=== PATIENT | male | born 1945 | race Caucasian/White ===

== ENCOUNTER → 2016-12-28 | Outpatient (CLI) | payer BC, OTHER ==
[~2016-12-28] MED LIST: ACET325T30 PO; ALBUAER19 INH; ALCA0.25 OPB; ALPR-385 PO; ALPR-411 PO; ALPR1TAB3 PO; ASCA500 PO; ASCO1CAP3 PO; ASPI-321 PO; ASPI-435 PO; BUME1TAB PO; BUPR-79 PO; CETI10TA73 PO; CETI10TA84 PO; CHOL400T PO; CINNOIL4 PO; CYM30 PO; DULO60CA44 PO; DXY100 PO; FLUN0.02; FLUT110A INH; FLVHFA220 INH; GUAI1TAB27 PO; LOSA1TAB PO; LOVA40TA4 PO; LRS10 PO; MEDIOIL PO; MIRA1TAB3 PO; MODA100T28 PO; MODA1TAB PO; MOML PO; MONT1TAB3 PO; MUCINEX PO; MULT-845 PO; OMEG10007 PO; OXYC-292 PO; OXYC1TAB3 PO; POLY335025 PO; POTA4.25 PO; POTATAB PO; PREG1CAP28 PO; PRLSR20 PO; PSYL48.59 PO; PSYL55.43 PO; RQP/2 PO; RQP2 PO; SILO8CAP PO; SIMV80TA2 PO; TRIA0.25 PO; VITA1TAB4 PO; VITBC PO; VNTHFA/IN INH; ZOLP10TA PO
[2016-12-28 12:43] LABS: BASO % 0.6 %; BASO ABS # 0.04 K/uL (0-0.2); COMPLETE YES; EOS % 7.4 %; HEMATOCRIT 43.7 % (42-52); IG% 0.2 %; LYMPH % 21.9 %; LYMPH ABS # 1.44 K/uL (1.2-3.4); MEAN CELL VOLUME 92.8 fL (80-100); MEAN CORPUSCULAR HEMOGLOBIN 31.4 pg (25-34); MEAN CORPUSCULAR HGB CONC 33.9 g/dl (32-36); MEAN PLATELET VOLUME 10.7 fL (7.4-10.4); MONO % 9.6 %; NEUT % 60.3 %; PLATELET COUNT 166 K/uL (130-400); RED BLOOD COUNT 4.71 M/uL (4.7-6.1); WHITE BLOOD COUNT 6.59 K/uL (4.8-10.8)
[2016-12-28 13:05] LABS: ALT/SGPT 42 U/L (12-78); AST/SGOT 32 U/L (15-37); BLOOD UREA NITROGEN 14 mg/dl (7-18); BUN/CREATININE RATIO 11.4 (10-20); CALCIUM 8.5 mg/dl (8.5-10.1); CARBON DIOXIDE 30 mmol/L (21-32); CHLORIDE 107 mmol/L (98-107); GLUCOSE 100 mg/dl (70-99); POTASSIUM 4.3 mmol/L (3.5-5.1); SODIUM 144 mmol/L (136-145); TRIGLYCERIDES 192 mg/dl (0-150); VERY LOW DENSITY LIPOPROT CALC 38 mg/dl
[2016-12-28 13:16] LABS: ALB/GLOB RATIO 1.2 (0.9-2); ALKALINE PHOSPHATASE 110 U/L (45-117); CHOLESTEROL 135 mg/dl (0-200); CHOLESTEROL/HDL RATIO 2.7; HDL CHOLESTEROL 50 mg/dl; LDL CHOLESTEROL CALCULATED 47 mg/dl
== END | disposition home or self-care (01) ==
LOC: C.LABBFT 11:02
PROVIDERS: ATTEND Psychiatry & Neurology Geriatric Psychiatry
DX: Z79.899 Other long term (current) drug therapy (principal)

== ENCOUNTER 2017-01-05 17:37 | Emergency (ER) | payer BC, OTHER ==
[~2017-01-05] VITALS: Ht 170.2 cm; Wt 93.0 kg
[~2017-01-05 17:37] MED LIST changes: -ALBUAER19 INH; -ALCA0.25 OPB; -ALPR-411 PO; -ASCA500 PO; -ASPI-435 PO; -BUME1TAB PO; -CETI10TA84 PO; -CINNOIL4 PO; -CYM30 PO; -DULO60CA44 PO; -FLUN0.02; -FLUT110A INH; -FLVHFA220 INH; -GUAI1TAB27 PO; -LRS10 PO; -MEDIOIL PO; -MIRA1TAB3 PO; -MONT1TAB3 PO; -MUCINEX PO; -MULT-845 PO; -OMEG10007 PO; -OXYC-292 PO; -OXYC1TAB3 PO; -POTA4.25 PO; -POTATAB PO; -PREG1CAP28 PO; -PSYL48.59 PO; -RQP/2 PO; -SILO8CAP PO; -SIMV80TA2 PO; -VITA1TAB4 PO; -VITBC PO; -VNTHFA/IN INH; -ZOLP10TA PO
[2017-01-05 17:46] VITALS: BP 156/98; TEMP 37; Ht 170.2 cm; Wt 93.0 kg
[2017-01-05] MEDS ORDERED: ALBUAER19 INH (17:59)
[2017-01-05] MEDS ORDERED: FLUT110A INH (17:59)
[2017-01-05] MEDS ORDERED: BUME1TAB PO (18:26)
[2017-01-05] MEDS ORDERED: PSYL48.59 PO (18:42)
[2017-01-05] MEDS ORDERED: ASPI-435 PO (18:42)
[2017-01-05] MEDS ORDERED: MIRA1TAB3 PO (18:42)
[2017-01-05] MEDS ORDERED: SIMV80TA2 PO (18:42)
[2017-01-05] MEDS ORDERED: CYM30 PO (18:42)
--- NOTE | 2017-01-05 18:48 | DIAGNOSTIC IMAGING REPORT ---
LEFT KNEE 3 VIEWS CLINICAL HISTORY: fall, left knee pain trauma. Pain. COMPARISON: None. DISCUSSION: Evidence for a total knee revision. Good contact between prosthetic and underlying bone. No evidence for fracture. There is no evidence for soft tissue swelling. IMPRESSION: No acute process status post total left knee revision Electronically signed by: Jonas Ahuja M.D. 01/05/2017 6:46 PM Dictated Date/Time: 01/05/2017 6:46 PM
--- NOTE | 2017-01-05 18:49 | DIAGNOSTIC IMAGING REPORT ---
LEFT SHOULDER MIN 2 VIEWS ROUTINE CLINICAL HISTORY: fall, left shoulder pain pain. Trauma. COMPARISON: None. DISCUSSION: Grade 2 separation left acromioclavicular joint. Age is uncertain. Narrowing of the acromiohumeral space presumably secondary to deterioration of the rotator cuff. No well-defined focus of fracture. There is no evidence for soft tissue swelling. IMPRESSION: Degenerative change. Grade 2 separation left acromioclavicular joint of uncertain age. Moderate secondary evidence for degenerative thinning of the rotator cuff. Electronically signed by: Jonas Ahuja M.D. 01/05/2017 6:47 PM Dictated Date/Time: 01/05/2017 6:47 PM
--- NOTE | 2017-01-05 18:56 | EMERGENCY ROOM VISIT NOTE ---
History First contact with patient: 17:52 Chief Complaint: SHOULDER PAIN Stated Complaint: SHOULDER PAIN FROM FALL, NEEDS XRAY History of Present Illness The patient is a 71 year old male who presents to the Emergency Room with complaints of fall. The patient states he was walking out of the store and looking at his receipt and tripped and fell down a step. The patient fell onto his left shoulder. He states he also sustained an abrasion to the left knee. He went to urgent care and was given a prescription for oxycodone. He states they also cleaned and dressed the abrasion to his knee. He states he was told it did not need any stitches and was an abrasion. The patient was sent to the emergency department for x-rays as they did not have x-ray capabilities today. The patient did not strike his head or have loss of consciousness. He has been able to ambulate without difficulty. He reports pain in his left shoulder which she rates a 7/10. He denies any numbness, tingling or weakness. He denies any nausea or vomiting. He denies abdominal pain. He denies any hip pain. Review of Systems A 10 system review of systems was completed with positives and pertinent negatives listed in the HPI. Past Medical/Surgical History Medical Problems: (1) GERD (gastroesophageal reflux disease) (2) Hyperlipidemia Social History Smoking Status: Never Smoker Drug Use: none Marital Status: Housing Status: lives with family Current/Historical Medications Scheduled Alcaftadine (Lastacaft), 1 DROP OPB QAM Alprazolam (Xanax), 1 MG PO AMPM Alprazolam (Xanax), 2 MG PO HS Aspirin (Aspirin 81), 81 MG PO DAILY Baclofen (Baclofen), 10 MG PO TID Bumetanide (Bumex), 1 MG PO QAM Bupropion (Wellbutrin Sr), 150 MG PO TID Cholecalciferol (Vitamin D), 800 UNIT PO HS Cinnamon Oil (Cinnamon Oil), 1 TBS PO QAM Duloxetine HCl (Duloxetine HCl), 30 MG PO QAM Duloxetine Hcl (Cymbalta), 60 MG PO QAM Fish Oil ([place]-3), 1 CAP PO BID Flunisolide (Nasal) (Flunisolide), 1 SPRAY NA AMHS Fluticasone Propionate Hfa (Flovent Hfa 110MCG Inhaler), 1 PUFF INH AMPM Losartan Potassium (Cozaar), 25 MG PO HS Magnesium Hydroxide (Milk Of Magnesia), 15 ML PO HS Mirabegron (Myrbetriq Er), 50 MG PO QAM Modafinil (Provigil), 200 MG PO QAM Modafinil (Provigil), 100 MG PO QPM Montelukast Sodium (Singulair), 10 MG PO QAM Multiple Vitamins W/ Minerals (Centrum Silver Adult 50+), 1 TAB PO QAM Omeprazole (Prilosec), 20 MG PO AMPM Polyethylene Glycol 3350 (Miralax), 17 GM PO BID Potassium Citrate (Alkalinizer (Potassium Citrate ER), 1,620 MG PO AMHS Pregabalin (Lyrica), 75 MG PO BID Psyllium (Metamucil), 1 TBS PO QAM Ropinirole Hydrochloride (Requip), 2 MG PO AMPM Ropinirole Hydrochloride (Requip), 4 MG PO HS Silodosin (Rapaflo), 8 MG PO DAILY Simvastatin (Zocor), 80 MG PO QPM Triazolam (Halcion), 0.25 MG PO HS Zolpidem Tartrate (Ambien), 10 MG PO HS [Mucinex], 400 MG PO AMPM Scheduled PRN Acetaminophen (Acetaminophen), 650 MG PO Q6 PRN for Pain or Fever Albuterol Inhaler (Ventolin Inhaler), 2 PUFFS INH Q4 PRN for SOB/Wheezing Alprazolam (Xanax), 1 MG PO DAILY PRN for Anxiety Allergies Coded Allergies: Morphine (Verified Adverse Reaction, Unknown, 05/08/15) Physical Exam Vital Signs Date Time Temp Pulse Resp B/P Pulse Ox O2 Delivery O2 Flow Rate FiO2 01/05/17 19:46 67 18 98 2 17:46 37.0 69 20 156/98 96 Room Air Physical Exam VITALS: Vitals are noted on the nurse's note and reviewed by myself. Vital signs stable. GENERAL: This is a 71-year-old male, in no acute distress, nondiaphoretic, well- developed well-nourished. SKIN: The skin was without rashes, erythema, edema, or bruising. There is a dressed wound to the left knee. The patient states he was told he did not need stitches and it was already clean and dressed and therefore he left the dressing in place. There is no tenting of the skin. Capillary reflex less than 2 seconds. HEAD: Normocephalic atraumatic. EARS: External auditory canals clear, tympanic membranes pearly browning without erythema or effusion bilaterally. EYES: Pupils equal round and reactive to light and accommodation. Conjunctivae without injection, sclerae without icterus. Extraocular movements intact. NOSE: Patent, turbinates without inflammation or discharge. MOUTH: Mucous membranes moist. Tonsils are not enlarged. Pharynx without erythema or exudate. Uvula midline. Airway patent. Tongue does not deviate. NECK: Supple without nuchal rigidity. No lymphadenopathy. No thyromegaly. Cervical spine is nontender. No JVD. HEART: Regular rate and rhythm without murmurs gallops or rubs. LUNGS: Clear to auscultation bilaterally without wheezes, rales or rhonchi. No retractions or accessory muscle use. MUSCULOSKELETAL: No muscle atrophy, erythema, or edema noted. Decreased range of motion in the left shoulder secondary to pain. There is tenderness to palpation over the proximal humerus. There is no abrasion to the left knee. There is no significant tenderness to the knee. The patient has had arthroplasty to the left knee. Normal gait. Strength 5/5 throughout. NEURO: Patient was alert and oriented to person place and time. Normal sensation to light and sharp touch. Deep tendon reflexes 2+ throughout. No focal neurological deficits. Medical Decision & Procedures ER Provider Diagnostic Interpretation: LEFT KNEE 3 VIEWS CLINICAL HISTORY: fall, left knee pain trauma. Pain. COMPARISON: None. DISCUSSION: Evidence for a total knee revision. Good contact between prosthetic and underlying bone. No evidence for fracture. There is no evidence for soft tissue swelling. IMPRESSION: No acute process status post total left knee revision LEFT SHOULDER MIN 2 VIEWS ROUTINE CLINICAL HISTORY: fall, left shoulder pain pain. Trauma. COMPARISON: None. DISCUSSION: Grade 2 separation left acromioclavicular joint. Age is uncertain. Narrowing of the acromiohumeral space presumably secondary to deterioration of the rotator cuff. No well-defined focus of fracture. There is no evidence for soft tissue swelling. IMPRESSION: Degenerative change. Grade 2 separation left acromioclavicular joint of uncertain age. Moderate secondary evidence for degenerative thinning of the rotator cuff. Medications Administered Medications (Trade) Dose Ordered Sig/Yael Route Start Time Stop Time Status Last Admin Dose Admin Oxycodone HCl (Roxicodone Immediate Rel Tab) 5 mg NOW STAT PO 01/05/17 19:08 01/05/17 19:10 DC 01/05/17 19:43 5 MG Oxycodone HCl (Roxicodone Immediate Rel 5MG Home Pack) 1 homepack UD ONCE PO 01/05/17 19:15 01/05/17 19:16 DC 01/05/17 19:43 1 HOMEPACK ED Course The patient was seen and examined. Previous visits were reviewed. The patient sustained a mechanical fall. He was already seen at urgent care and referred to the emergency department solely for x-ray. The patient appears to have an acromioclavicular separation to the left shoulder. He has had repair of the rotator cuff in the past. He does not recall having an acromioclavicular separation in the past. The patient is neurovascularly intact. He already had a sling from urgent care. He already had a prescription for oxycodone from urgent care. There is no significant tenderness to palpation of the left knee. The patient reports an abrasion was already cleaned and dressed. He states that he was told it did not need sutures. He did seem to prefer to leave the dressing in place. X-ray of the left knee does not reveal any obvious abnormality and the prosthesis is intact. He was given 1 oxycodone in the emergency department as well as a take-home pack. He should contact orthopedics, he sees [facility], tomorrow to schedule a follow-up appointment for further evaluation and management. He should return to the ER with worsening symptoms. The patient was also seen and examined by who agrees with the assessment and treatment plan. Medical Decision The differential diagnosis includes extremity fracture, contusion, shoulder dislocation, among others Impression Primary Impression: AC separation, type 2 Additional Impressions: Knee contusion Fall Departure Information Dispostion Home / Self-Care Condition GOOD Referrals Augusto Valdez M.D. (PCP) Alvin Greenberg M.D. Patient Instructions Arthritis Acromioclavicular, [facility] Additional Instructions Take the pain medication as prescribed by urgent care. Wear the sling until seen by orthopedics Contact orthopedics in the morning to schedule a follow-up appointment Return with worsening symptoms Problem Qualifiers Primary Impression: AC separation, type 2 Encounter type: initial encounter Laterality: left Qualified Codes: S43.102A - Unspecified dislocation of left acromioclavicular joint, initial encounter Additional Impressions: Knee contusion Encounter type: initial encounter Laterality: left Qualified Codes: S80.02XA - Contusion of left knee, initial encounter Fall Encounter type: initial encounter Qualified Codes: W19.XXXA - Unspecified fall, initial encounter
[2017-01-05] MEDS ORDERED: OXYCODONE HCL IR 5 MG TAB (IMMEDIATE RELEASE) PO STA (19:08)
[2017-01-05] MEDS ORDERED: TRIA0.25 PO (19:15)
[2017-01-05] MEDS ORDERED: OXYCODONE IR HOME PACK PO ONE (19:15)
[2017-01-05] MEDS ORDERED: MUCINEX PO (19:15)
[2017-01-05] MEDS ORDERED: ALCA0.25 OPB (19:15)
[2017-01-05] MEDS ORDERED: OMEG10007 PO (19:19)
[2017-01-05] MEDS ORDERED: CINNOIL4 PO (19:19)
--- NOTE | 2017-01-05 19:43 | EMERGENCY ROOM VISIT NOTE ---
ED Visit Note First contact with patient: 19:26 71-year-old male with left shoulder pain was fully evaluated by Paula Self. Please see her note. I also independently evaluated the patient. The patient appears to have a left before meals separation. The patient will follow -up with orthopedics. He was placed in a sling. IMPRESSION: Left AC Separation
[2017-01-05 19:46] VITALS: PULSE 67; O2SAT 98
[2017-01-05] MEDS ORDERED: DULO60CA44 PO (23:26)
[2017-01-05] MEDS ORDERED: ALPR-411 PO (23:29)
[2017-01-05] MEDS ORDERED: PREG1CAP28 PO (23:30)
[2017-01-05] MEDS ORDERED: MULT-845 PO (23:35)
[2017-01-05] MEDS ORDERED: SILO8CAP PO (23:43)
[2017-01-05] MEDS ORDERED: RQP/2 PO ×2 (23:44)
[2017-01-05] MEDS ORDERED: LRS10 PO (23:50)
[2017-01-05] MEDS ORDERED: POTA4.25 PO (23:50)
[2017-01-05] MEDS ORDERED: ZOLP10TA PO (23:50)
[2017-01-05] MEDS ORDERED: MONT1TAB3 PO (23:53)
[2017-01-05] MEDS ORDERED: FLUN0.02 (23:56)
[2017-03-22] MEDS ORDERED: VNTHFA/IN INH (20:33)
[2017-03-22] MEDS ORDERED: VITBC PO (20:33)
[2017-03-22] MEDS ORDERED: MEDIOIL PO (20:33)
[2017-03-22] MEDS ORDERED: CETI10TA84 PO (20:33)
[2017-03-22] MEDS ORDERED: POTATAB PO (20:33)
[2017-03-22] MEDS ORDERED: ASCA500 PO (20:33)
[2017-03-22] MEDS ORDERED: FLVHFA220 INH (20:33)
[2017-03-22] MEDS ORDERED: GUAI1TAB27 PO (20:33)
[2017-03-22] MEDS ORDERED: VITA1TAB4 PO (20:33)
[2017-03-22] MEDS ORDERED: OXYC-292 PO (20:34)
[2017-03-22] MEDS ORDERED: OXYC1TAB3 PO (20:49)
== END 2017-01-05 20:00 | disposition home or self-care (01) ==
LOC: C.EDB 17:38 → C.EDD 20:00
DX: S43.102A Unspecified dislocation of left acromioclavicular joint, initial encounter (principal); S80.02XA Contusion of left knee, initial encounter; W19.XXXA Unspecified fall, initial encounter; Z79.82 Long term (current) use of aspirin; K21.9 Gastro-esophageal reflux disease without esophagitis

== ENCOUNTER → 2017-02-06 | Outpatient (CLI) | payer BC, OTHER ==
[~2017-02-06] MED LIST changes: +ALBUAER19 INH; +ALCA0.25 OPB; +ALPR-411 PO; +ASCA500 PO; -ASCO1CAP3 PO; -ASPI-321 PO; +ASPI-435 PO; +BUME1TAB PO; -CETI10TA73 PO; +CETI10TA84 PO; +CINNOIL4 PO; +CYM30 PO; +DULO60CA44 PO; -DXY100 PO; +FLUN0.02; +FLUT110A INH; +FLVHFA220 INH; +GUAI1TAB27 PO; -LOVA40TA4 PO; +LRS10 PO; +MEDIOIL PO; +MIRA1TAB3 PO; +MONT1TAB3 PO; +MUCINEX PO; +MULT-845 PO; +OMEG10007 PO; +OXYC-292 PO; +OXYC1TAB3 PO; +POTA4.25 PO; +POTATAB PO; +PREG1CAP28 PO; +PSYL48.59 PO; -PSYL55.43 PO; +RQP/2 PO; -RQP2 PO; +SILO8CAP PO; +SIMV80TA2 PO; +VITA1TAB4 PO; +VITBC PO; +VNTHFA/IN INH; +ZOLP10TA PO
== END | disposition home or self-care (01) ==
LOC: C.CPL 15:55
PROVIDERS: ATTEND Orthopaedic Surgery
DX: Z01.810 Encounter for preprocedural cardiovascular examination (principal)

== ENCOUNTER → 2017-03-06 | Outpatient (CLI) | payer BC, OTHER ==
[~2017-03-06] MED LIST changes: -GUAI1TAB27 PO; +GUAI400T44 PO
[2017-03-06 19:23] LABS: BLOOD UREA NITROGEN 16 mg/dl (7-18)
== END | disposition home or self-care (01) ==
LOC: C.LAB 17:54
PROVIDERS: ATTEND Psychiatry & Neurology Neurology
DX: R35.0 Frequency of micturition (principal); R48.2 Apraxia

== ENCOUNTER → 2017-03-10 | Outpatient (CLI) | payer BC, OTHER ==
[~2017-03-10] MED LIST changes: +GADAVIST IV PRN
--- NOTE | 2017-03-10 20:01 | DIAGNOSTIC IMAGING REPORT ---
MRI OF THE BRAIN WITHOUT AND WITH IV CONTRAST CLINICAL HISTORY: R35.0 Urinary [id number] Gait apraxia evaluate for [id number] mental status change COMPARISON STUDY: 09/01/2006 TECHNIQUE: Utilizing a 1.5 Tessy magnet and dedicated coil, multiplanar, multiecho imaging of the brain was performed pre and postcontrast administration. IV administration of 8 mL of Gadavist contrast was uneventful. FINDINGS: Diffusion-weighted images show no evidence for an acute ischemic event. Moderate chronic small vessel change of the periventricular deep white matter regions. Ventricular system is midline. Postcontrast images are considered negative for an enhancing lesion. IMPRESSION: 1. No evidence for an acute ischemic event. 2. Moderate chronic small vessel change with findings of mild atrophy of aging. 3. No acute process. No major change from the prior exam. Electronically signed by: Jonas Ahjua M.D. 03/10/2017 7:59 PM Dictated Date/Time: 03/10/2017 7:56 PM
--- NOTE | 2017-03-10 20:16 | DIAGNOSTIC IMAGING REPORT ---
CERVICAL SPINE MRI WITH AND WITHOUT CONTRAST HISTORY: Neuropathy G37.3 Transverse [id number] TECHNIQUE: Multiplanar multisequence MRI of the cervical spine was performed both before and after the use of intravenous contrast. COMPARISON STUDY: 09/19/2006 FINDINGS: Moderate degenerative intervertebral this change from C5 through C7 similar compared to the prior study. Sagittal images show improved signal character of the cord. The increased signal present described is no longer present. C2-C3: No significant central canal or neural foraminal narrowing. C3-C4: Broad-based bulging disc. No significant contact with the cervical cord or neural foramina. C4-C5: Moderate osteophytic narrowing right and to lesser extent left neural foramina. This is unchanged in the prior study. No significant impact upon the cervical cord C5-C6: Mild broad-based disc herniation. Minimal impact of the anterior cervical cord. Mild narrowing of the neuroforamina bilaterally. Findings a slightly improved from the prior study. C6-C7: Mild broad-based disc herniation showing minimal contact with the anterior cervical cord. Moderate narrowing of the neuroforamina bilaterally. This is also similar compared to the prior study C7-T1: Moderate osteophytic narrowing right neural foramina minimally increased in the prior study. IMPRESSION: 1. Moderate osteophytic narrowing right neural foramina C7-T1 minimally increased in the prior exam. 2. Broad-based bulging disc versus mild disc herniations from C4 through C6 is stable to perhaps slightly diminished in the prior exam. 3. Signal characteristics of the cervical cord currently are unremarkable. 4. No evidence for abnormal postcontrast enhancement Electronically signed by: Jonas Ahuja M.D. 03/10/2017 8:14 PM Dictated Date/Time: 03/10/2017 8:11 PM
== END | disposition home or self-care (01) ==
LOC: C.MRI 17:31
PROVIDERS: ATTEND Psychiatry & Neurology Neurology
DX: R35.0 Frequency of micturition (principal); G37.3 Acute transverse myelitis in demyelinating disease of central nervous system

== ENCOUNTER → 2017-03-21 | Outpatient (CLI) | payer BC, OTHER ==
[~2017-03-21] MED LIST changes: -GADAVIST IV PRN
--- NOTE | 2017-03-21 14:10 | DIAGNOSTIC IMAGING REPORT ---
CHEST 2 VIEWS ROUTINE CLINICAL HISTORY[id number] COMPARISON STUDY: 05/08/2015 FINDINGS: The cardiac and mediastinal contours are normal. There is no evidence of focal pulmonary consolidation. There is no evidence of failure. No pleural effusions are visualized.[ There is minor chronic interstitial thickening similar to the preceding study. Degenerative changes are present within the dorsal spine. IMPRESSION: No active disease in the chest. Electronically signed by: Vlad Booth M.D. 03/21/2017 2:08 PM Dictated Date/Time: 03/21/2017 2:08 PM
== END | disposition home or self-care (01) ==
LOC: C.RAD 13:37
PROVIDERS: ATTEND Internal Medicine Pulmonary Disease
DX: Z00.00 Encounter for general adult medical examination without abnormal findings (principal)

== ENCOUNTER → 2017-12-28 | Outpatient (CLI) | payer BC, OTHER ==
[~2017-12-28] MED LIST changes: +ACET-1346 PO; -ACET325T30 PO; -ALBUAER19 INH; -FLUT110A INH; -MONT1TAB3 PO; -MUCINEX PO; -OXYC1TAB3 PO; -POTA4.25 PO
[2017-12-28 15:34] LABS: BASO % 0.3 %; BASO ABS # 0.02 K/uL (0-0.2); EOS % 4.2 %; EOS ABS # 0.28 K/uL (0-0.5); HEMATOCRIT 43.1 % (42-52); HEMOGLOBIN 14.5 g/dL (14.0-18.0); IG# 0.02 K/uL (0.00-0.02); LYMPH % 25.4 %; LYMPH ABS # 1.69 K/uL (1.2-3.4); MEAN CELL VOLUME 94.1 fL (80-100); MEAN CORPUSCULAR HEMOGLOBIN 31.7 pg (25-34); MEAN CORPUSCULAR HGB CONC 33.6 g/dl (32-36); MEAN PLATELET VOLUME 10.6 fL (7.4-10.4); MONO % 7.7 %; MONO ABS # 0.51 K/uL (0.11-0.59); NEUT % 62.1 %; NEUT ABS # 4.13 K/uL (1.4-6.5); PLATELET COUNT 179 K/uL (130-400); RED CELL DISTRIBUTION WIDTH CV 14.4 % (11.5-14.5); RED CELL DISTRIBUTION WIDTH SD 49.2 fL (36.4-46.3); WHITE BLOOD COUNT 6.65 K/uL (4.8-10.8)
[2017-12-28 15:52] LABS: BLOOD UREA NITROGEN 14 mg/dl (7-18); CARBON DIOXIDE 28 mmol/L (21-32); CREATININE 1.14 mg/dl (0.60-1.40); GLUCOSE 111 mg/dl (70-99); POTASSIUM 3.7 mmol/L (3.5-5.1); SODIUM 141 mmol/L (136-145)
== END | disposition home or self-care (01) ==
LOC: C.LAB1850 13:36
PROVIDERS: ATTEND Physician Assistant Medical
DX: R21 Rash and other nonspecific skin eruption (principal)

== ENCOUNTER → 2018-03-01 | Day surgery (SDC) | payer BC, OTHER ==
[2018-02-21 11:34] VITALS: Ht 170.2 cm; Wt 90.9 kg
[~2018-03-01] VITALS: Ht 170.2 cm; Wt 90.9 kg
[~2018-03-01] MED LIST changes: +ALCA0.25 OP; -ALPR-411 PO; -ALPR1TAB3 PO; -ASCA500 PO; +FESO4TAB PO; +LIDOCAINE HCL 2% 2 ML VIAL (20MG/ML) ONE; -MIRA1TAB3 PO; -MOML PO; +PREG100C PO; -PREG1CAP28 PO; +PROPOFOL IV EMULSION 10 MG/ML 20 ML VIAL IV ONE; -PSYL48.59 PO
--- NOTE | 2018-03-01 12:19 | Endo History and Physical ---
History & Physical Date of Service: Mar 01, 2018. Chief Complaint: Screening Referring Physician: José Miguel History of Present Illness 72 yo CM who presents for screening colonoscopy. Past Medical History Neurological Disorder, Arthritis, Fractures, Asthma, Male Genitourinary Prob., Gastrointestinal Disorder, Anxiety, Reflux, High Cholesterol, Sleep Apnea, Hypertension, Kidney Disease, Depression Past Surgical History Hx Cardiac Surgery: No Hx Internal Defibrillator: No Hx Pacemaker: No Hx Abdominal Surgery: Yes (APPENDECTOMY) Hx of Implantable Prosthesis: No Hx Post-Op Nausea and Vomiting: No Hx Cancer Surgery: No Hx Thoracic Surgery: No Hx Orthopedic: Yes (LEFT KNEE ARTHROSCOPY;LT KNEE RELACEMENTX2; TIMOTEO SHOULDER ARTHROSCOPY; ) Hx Urinary Tract Surgery: Yes (PROSTATE TUNA; CYSTO/STONE BASKETING; MNPG) Family History None Social History Smoking Status: Never Smoker Hx Substance Use: No Hx Alcohol Use: Yes (OCCASSIONAL) Allergies Coded Allergies: Morphine (Verified Adverse Reaction, Unknown, UNABLE TO VOID; CONSTIPATION , 02/21/18) Current Medications Reported Home Medications Medications Dose Route/Sig Max Daily Dose Days Date Category Dose Instructions Lastacaft (Alcaftadine) 0.25 % Ida 1 Drops OP UD 02/21/18 Reported Toviaz (Fesoterodine Fumarate) 4 Mg Tab 4 Mg PO QAM 02/21/18 Reported Lyrica (Pregabalin) 100 Mg Cap 100 Mg PO BID 02/21/18 Reported Oxycodone Hcl Er (Oxycodone Hcl) 10 Mg Tab 10 Mg PO Q12 PRN 03/22/17 Reported Mct Oil (Medium Chain Triglycerides) 1 Oil Oil 1 Tbs PO QAM 03/22/17 Reported Vitamin B Complex 1 Tab Tab 1 Tab PO QPM 03/22/17 Reported Vitamin E 400 Unit Tab 400 Unit PO QPM 03/22/17 Reported Guaifenesin 400 Mg Tab 400 Mg PO BID 03/22/17 Reported Zyrtec (Cetirizine HCl) 10 Mg Tab 10 Mg PO DAILY 03/22/17 Reported Urocit-K 5 (Potassium Citrate (Alkalinizer) 540 Mg Tab 1,620 Mg PO AMHS 03/22/17 Reported Ventolin Hfa (Albuterol) 200 Puffs/30703 Mcg Aers 2 Puffs INH Q4 PRN 03/22/17 Reported Cinnamon Oil 1 Oil Oil 1 Tbs PO QAM 01/05/17 Reported [place]-3 (Fish Oil) 1 Ea Cap 1 Cap PO BID 01/05/17 Reported Lastacaft (Alcaftadine) 0.25 % Ida 1 Drop OPB QAM 01/05/17 Reported Halcion (Triazolam) 0.25 Mg Tab 0.125 Mg PO HS 01/05/17 Reported Duloxetine HCl 30 Mg Cap 30 Mg PO QAM 01/05/17 Reported Zocor (Simvastatin) 80 Mg Tab 80 Mg PO QPM 01/05/17 Reported Aspirin 81 (Aspirin) 81 Mg Tab 81 Mg PO QAM 01/05/17 Reported Flunisolide (Flunisolide (Nasal)) 0.025 % Spr 1 [place] NA AMHS 05/08/15 Reported Baclofen 10 Mg Tab 10 Mg PO TID 05/08/15 Reported AM, PM, HS Ambien (Zolpidem Tartrate) 10 Mg Tab 10 Mg PO HS 05/08/15 Reported Requip (Ropinirole Hydrochloride) 2 Mg Tab 4 Mg PO HS 05/08/15 Reported Requip (Ropinirole Hydrochloride) 2 Mg Tab 2 Mg PO AMPM 05/08/15 Reported Rapaflo (Silodosin) 8 Mg Cap 8 Mg PO HS 05/08/15 Reported Centrum Silver Adult 50+ (Multiple Vitamins W/ Minerals) 1 Tab Tab 1 Tab PO QAM 05/08/15 Reported Cymbalta (Duloxetine Hcl) 60 Mg Cap 60 Mg PO QAM 05/08/15 Reported Miralax (Polyethylene Glycol 3350) 1 Pow Pow 17 Gm PO BID 08/09/14 Reported Vitamin D (Cholecalciferol) 400 Unit Tab 800 Unit PO HS 05/27/14 Reported Xanax (Alprazolam) 1 Mg Tab 0.5 Mg PO TID 05/27/14 Reported Cozaar (Losartan Potassium) 25 Mg Tab 25 Mg PO HS 05/27/14 Reported Prilosec (Omeprazole) 20 Mg Capcr 20 Mg PO AMPM 05/27/14 Reported Bumex (Bumetanide) 1 Mg Tab 1 Mg PO QAM 10/28/13 Reported Acetaminophen 325 Mg Tab 650 Mg PO Q6 PRN 07/11/13 Reported Provigil (Modafinil) 100 Mg Tab 100 Mg PO QPM 07/11/13 Reported Wellbutrin Sr (Bupropion HCl) 150 Mg Ertab 150 Mg PO TID 07/11/13 Reported Provigil (Modafinil) 200 Mg Tab 200 Mg PO QAM 12/29/09 Reported Vital Signs Weight (Kilograms): 90.91 Height (Feet): 5 Height (Inches): 7 Date Time Temp Pulse Resp B/P (MAP) Pulse Ox O2 Delivery O2 Flow Rate FiO2 03/01/18 12:06 36.6 68 18 148/97 (114) 96 Room Air Physical Exam General Appearance: WD/WN, no apparent distress Respiratory/Chest: Auscultation: breath sounds normal Cardiovascular: Heart Auscultation: RRR Abdomen: Bowel Sounds: normal Inspection & Palpation: soft, non-distended, no tenderness, guarding & rebound Assessment and Plan Assessment: 72 yo CM who presents for screening colonoscopy. Plan: Proceed with colonoscopy.
--- NOTE | 2018-03-01 13:37 | Discharge Instructions ---
Endoscopy Patient Instructions Date / Procedure(s) Performed Mar 01, 2018. Colonoscopy Allergy Information Coded Allergies: Morphine (Verified Adverse Reaction, Unknown, UNABLE TO VOID; CONSTIPATION , 02/21/18) Discharge Date / Findings Mar 01, 2018. Diverticulosis Internal hemorrhoids Medication Instructions OK to resume all medications today as prescribed Reported Home Medications Medications Dose Route/Sig Max Daily Dose Days Date Category Dose Instructions Lastacaft (Alcaftadine) 0.25 % Ida 1 Drops OP UD 02/21/18 Reported Toviaz (Fesoterodine Fumarate) 4 Mg Tab 4 Mg PO QAM 02/21/18 Reported Lyrica (Pregabalin) 100 Mg Cap 100 Mg PO BID 02/21/18 Reported Oxycodone Hcl Er (Oxycodone Hcl) 10 Mg Tab 10 Mg PO Q12 PRN 03/22/17 Reported Mct Oil (Medium Chain Triglycerides) 1 Oil Oil 1 Tbs PO QAM 03/22/17 Reported Vitamin B Complex 1 Tab Tab 1 Tab PO QPM 03/22/17 Reported Vitamin E 400 Unit Tab 400 Unit PO QPM 03/22/17 Reported Guaifenesin 400 Mg Tab 400 Mg PO BID 03/22/17 Reported Zyrtec (Cetirizine HCl) 10 Mg Tab 10 Mg PO DAILY 03/22/17 Reported Urocit-K 5 (Potassium Citrate (Alkalinizer) 540 Mg Tab 1,620 Mg PO AMHS 03/22/17 Reported Ventolin Hfa (Albuterol) 200 Puffs/80112 Mcg Aers 2 Puffs INH Q4 PRN 03/22/17 Reported Cinnamon Oil 1 Oil Oil 1 Tbs PO QAM 01/05/17 Reported [place]-3 (Fish Oil) 1 Ea Cap 1 Cap PO BID 01/05/17 Reported Lastacaft (Alcaftadine) 0.25 % Ida 1 Drop OPB QAM 01/05/17 Reported Halcion (Triazolam) 0.25 Mg Tab 0.125 Mg PO HS 01/05/17 Reported Duloxetine HCl 30 Mg Cap 30 Mg PO QAM 01/05/17 Reported Zocor (Simvastatin) 80 Mg Tab 80 Mg PO QPM 01/05/17 Reported Aspirin 81 (Aspirin) 81 Mg Tab 81 Mg PO QAM 01/05/17 Reported Flunisolide (Flunisolide (Nasal)) 0.025 % Spr 1 [place] NA AMHS 05/08/15 Reported Baclofen 10 Mg Tab 10 Mg PO TID 05/08/15 Reported AM, PM, HS Ambien (Zolpidem Tartrate) 10 Mg Tab 10 Mg PO HS 05/08/15 Reported Requip (Ropinirole Hydrochloride) 2 Mg Tab 4 Mg PO HS 05/08/15 Reported Requip (Ropinirole Hydrochloride) 2 Mg Tab 2 Mg PO AMPM 05/08/15 Reported Rapaflo (Silodosin) 8 Mg Cap 8 Mg PO HS 05/08/15 Reported Centrum Silver Adult 50+ (Multiple Vitamins W/ Minerals) 1 Tab Tab 1 Tab PO QAM 05/08/15 Reported Cymbalta (Duloxetine Hcl) 60 Mg Cap 60 Mg PO QAM 05/08/15 Reported Miralax (Polyethylene Glycol 3350) 1 Pow 17 Gm PO BID 08/09/14 Reported Vitamin D (Cholecalciferol) 400 Unit Tab 800 Unit PO HS 05/27/14 Reported Xanax (Alprazolam) 1 Mg Tab 0.5 Mg PO TID 05/27/14 Reported Cozaar (Losartan Potassium) 25 Mg Tab 25 Mg PO HS 05/27/14 Reported Prilosec (Omeprazole) 20 Mg Capcr 20 Mg PO AMPM 05/27/14 Reported Bumex (Bumetanide) 1 Mg Tab 1 Mg PO QAM 10/28/13 Reported Acetaminophen 325 Mg Tab 650 Mg PO Q6 PRN 07/11/13 Reported Provigil (Modafinil) 100 Mg Tab 100 Mg PO QPM 07/11/13 Reported Wellbutrin Sr (Bupropion HCl) 150 Mg Ertab 150 Mg PO TID 07/11/13 Reported Provigil (Modafinil) 200 Mg Tab 200 Mg PO QAM 12/29/09 Reported Provider Instructions Activity Restrictions - No exercising or heavy lifting for 24 hours. - Do not drink alcohol the day of the procedure. - Do not drive a car or operate machinery until the day after the procedure. - Do not make any important decisions or sign important papers in 24 hours after the procedure. Following Day: - Return to full activity which may include returning to work/school. Diet Start your diet with liquids and light foods (jello, soup, juice, toast). Then eat your usual diet if not nauseated. Treatment For Common After Affects For mild abdominal pain, bloating, or excessive gas: - Rest - Eat lightly - Lie on right side Follow-Up Information Follow-up with José Miguel as scheduled Anesthesia Information What You Should Know You have had a procedure that required some medicine to reduce anxiety and discomfort. This treatment is called moderate sedation. After receiving the treatment, you may be sleepy, but you will be able to breathe on your own. The effects of the treatment may last for several hours. Follow these instructions along with Activity/Diet recommendations noted above: * Do NOT do anything where dizziness or clumsiness would be dangerous. * Rest quietly at home today, then you can be up and about tomorrow. * Have a responsible person stay with you the rest of today. * You may have had an I.V. today. If so, you may take the dressing off later today. Recommendations Call your doctor if: * Trouble breathing * Continuous vomiting for more than 24 hours * Temperature above 101 degrees * Severe abdominal pain or bloating * Pain not relieved by pain medicine ordered * There is increased drainage or redness from any incision * A large amount of rectal bleeding greater than 2-3 tablespoons. (If you had a polyp/s removed or have hemorrhoids, a small amount of blood - from the rectum is to be expected.) * You have any unanswered questions or concerns. IN THE EVENT OF A SERIOUS EMERGENCY, GO TO THE NEAREST EMERGENCY ROOM Your discharge instructions were prepared by provider Carlos Whitaker. Patient Instructions Signature Page Jeffrey Reynoso Patient (or Guardian) Signature/Date: I have read and understand the instructions given to me by my caregivers. Caregiver/RN/Doctor Signature/Date: The above-named patient and/or guardian has received patient instructions on this date. + Original Patient Signature Page (only) stays with chart. Please make copy for patient.
[2018-03-01 13:50] VITALS: BP 116/75; PULSE 63; O2SAT 97
--- NOTE | 2018-03-01 13:51 | Anesthesiology Progress Note ---
Anesthesia Post Op Note Date & Time Mar 01, 2018 at 13:50 Vital Signs Pain Intensity: 0 Vital Signs Past 12 Hours Date Time Temp Pulse Resp B/P (MAP) Pulse Ox O2 Delivery O2 Flow Rate FiO2 03/01/18 13:35 70 16 93/50 (64) 98 Room Air 03/01/18 13:18 36.7 74 16 94/71 (79) 95 Room Air 03/01/18 12:06 36.6 68 18 148/97 (114) 96 Room Air Notes Mental Status: alert / awake / arousable, participated in evaluation Pt Amnestic to Procedure: Yes Nausea / Vomiting: adequately controlled Pain: adequately controlled Airway Patency, RR, SpO2: stable & adequate BP & HR: stable & adequate Hydration State: stable & adequate Anesthetic Complications: no major complications apparent Patient doing well on discharge with no complaints, BP 116/75 HR 65.
--- NOTE | 2018-03-01 14:21 | GI REPORT ---
Procedure Date: 03/01/2018 12:46 PM Procedure: Colonoscopy Indications: Screening for colorectal malignant neoplasm Medicines: Monitored Anesthesia Care Complications: No immediate complications. Estimated Blood Loss: Estimated blood loss: none. Procedure: Pre-Anesthesia Assessment: - Prior to the procedure, a History and Physical was performed, and patient medications and allergies were reviewed. The patient's tolerance of previous anesthesia was also reviewed. The risks and benefits of the procedure and the sedation options and risks were discussed with the patient. All questions were answered, and informed consent was obtained. Prior Anticoagulants: The patient has taken aspirin, last dose was 1 day prior to procedure. ASA Grade Assessment: III - A patient with severe systemic disease. After reviewing the risks and benefits, the patient was deemed in satisfactory condition to undergo the procedure. After I obtained informed consent, the scope was passed under direct vision. Throughout the procedure, the patient's blood pressure, pulse, and oxygen saturations were monitored continuously. The scope was introduced through the anus and advanced to the cecum, identified by appendiceal orifice and ileocecal valve. The colonoscopy was performed without difficulty. The patient tolerated the procedure well. The quality of the bowel preparation was good. The ileocecal valve, appendiceal orifice, and rectum were photographed. Findings: The perianal and digital rectal examinations were normal. Multiple small-mouthed diverticula were found in the sigmoid colon. Non-bleeding internal hemorrhoids were found during retroflexion. The hemorrhoids were small. Impression: - Diverticulosis in the sigmoid colon. - Non-bleeding internal hemorrhoids. - No specimens collected. Recommendation: - Resume previous diet. - Continue present medications. - No repeat colonoscopy due to age and the absence of advanced adenomas. - Return to primary care physician as previously scheduled. Carlos Whitaker DO 03/01/2018 2:20:54 PM This report has been signed electronically. Note Initiated On: 03/01/2018 12:46 PM I attest to the content of the Intraoperative Record and orders documented therein, exceptions below
== END | disposition home or self-care (01) ==
LOC: C.GI 11:39
PROVIDERS: ATTEND Internal Medicine
DX: Z12.11 Encounter for screening for malignant neoplasm of colon (principal); K57.30 Diverticulosis of large intestine without perforation or abscess without bleeding; K64.8 Other hemorrhoids; J45.909 Unspecified asthma, uncomplicated; I10 Essential (primary) hypertension; E78.00 Pure hypercholesterolemia, unspecified; K21.9 Gastro-esophageal reflux disease without esophagitis; G47.33 Obstructive sleep apnea (adult) (pediatric); Z88.5 Allergy status to narcotic agent; Z79.82 Long term (current) use of aspirin; Z79.899 Other long term (current) drug therapy; Z90.89 Acquired absence of other organs; Z96.652 Presence of left artificial knee joint; Z98.890 Other specified postprocedural states

== ENCOUNTER → 2018-04-02 | Outpatient (CLI) | payer BC, OTHER ==
[~2018-04-02] MED LIST changes: -LIDOCAINE HCL 2% 2 ML VIAL (20MG/ML) ONE; -PROPOFOL IV EMULSION 10 MG/ML 20 ML VIAL IV ONE
== END | disposition home or self-care (01) ==
LOC: C.LABBFT 13:57
PROVIDERS: ATTEND Urology
DX: N39.41 Urge incontinence (principal)

== ENCOUNTER 2019-04-12 13:20 | Inpatient (IN) ==
[2019-04-12] MEDS ORDERED: ACETAMINOPHEN 325 MG TAB PO PRN (13:42)
[2019-04-12] MEDS ORDERED: MAGNESIUM HYDROXIDE SUSP 30 ML UDC PO PRN (13:42)
[2019-04-12] MEDS ORDERED: ONDANSETRON INJ 2 MG/ML 2 ML VIAL IV PRN (13:42)
[2019-04-12 14:16] LABS: Basophils # (auto) 0.02 K/uL (0-0.2); Basophils % (auto) 0.3 %; Eosinophils # (auto) 0.18 K/uL (0-0.5); Hematocrit (blood only) 40.2 % (42-52); Hemoglobin 13.8 g/dL (14.0-18.0); Immature Granulocytes # (auto) 0.01 K/uL (0.00-0.02); Immature Granulocytes % (auto) 0.2 %; Lymphocytes # (auto) 1.34 K/uL (1.2-3.4); Lymphocytes % (auto) 22.2 %; Mean Corpuscular Hgb Conc 34.3 g/dL (32-36); Mean Corpuscular Volume 88.9 fL (80-100); Monocytes % (auto) 6.6 %; Neutrophils # (auto) 4.09 K/uL (1.4-6.5); Neutrophils % (auto) 67.7 %; Platelet Count 183 K/uL (130-400); RDW Coefficient of Variation 14.2 % (11.5-14.5); RDW Standard Deviation 46.4 fL (36.4-46.3); Red Blood Count 4.52 M/uL (4.7-6.1); White Blood Count 6.04 K/uL (4.8-10.8)
[2019-04-12] MEDS ORDERED: DAPTOmycin 275 MG in SYRINGE 0 ML IV ONE (14:19)
--- NOTE | 2019-04-12 14:19 | History & Physical Report ---
Date of Service April 12, 2019 Assessment & Plan (1) Cellulitis of left lower extremity: Hx of doxy x9 days [employer] and worsening redness LLE US 04/05 neg for DVT, will repeat today given off xarelto x5 days and worsening redness/swelling Dapto Blood cx pending Wound cx done in office, pending CBC, PRP pending (2) Hematoma of left lower extremity: evacuated at [facility] on 04/12 Holding xarelto (3) Pulmonary embolism: Occurred s/p shoulder surgery 09/2018 Plan was for xarelto until end of April Has been on hold x5 days due to above Advised pt to alert nursing if any chest pain, SOB, lightheadedness, etc No need for CTA at present (4) BPH with urinary obstruction: continue home meds (5) Hyperlipidemia: continue home meds (6) GERD (gastroesophageal reflux disease): continue home meds (7) RLS (restless legs syndrome): continue home meds (8) HTN (hypertension): continue home meds (9) Transverse myelitis: Stable (10) DVT prophylaxis: SCDs while xarelto is on hold History of Present Illness Primary Care Provider: Augusto Valdez MD 74 y/o M who was sent here from [facility] after being seen there earlier today. Pt fell on 03/30 and has been seen in the ED and by PCP several times since then for a hematoma that developed. He had an US on 04/05 that was neg for DVT. He continued to have redness and pain and swelling. There was concern for possible cellulitis and pt has been on doxy x9 days. Due to the development of a hematoma, pt's xarelto has been held x5 days. Despite these interventions, pt has had worsening redness, pain, and swelling. He was sent to [facility] today and evacuated the hematoma. Due to concern over worsening redness despite abx, pt was felt to have a cellulitis that has failed outpt tx. Pt states that he feels much better s/p hematoma evacuation. Still with redness and swelling, but the pain is much better now. Pt denies fever, SOB, chest pain, abd pain, n/v/c/d. Has been tolerating PO without issue. Pt was on xarelto for a PE that developed s/p L shoulder surgery in September. Plan was for tx until end of April. Allergies Allergy/AdvReac Type Severity Reaction Status Date / Time morphine AdvReac Unknown UNABLE TO Verified 04/12/19 10:38 VOID; CONSTIPATION Home Medications Home Medications Medication Instructions Recorded Confirmed Type Asmanex Twisthaler 1 inh INHALATION BID 08/17/18 04/12/19 History Lastacaft 1 drp OPHTHALMIC (EYE) QAM PRN 08/17/18 04/12/19 History Lyrica 100 mg PO BID 08/17/18 04/12/19 History Mucinex Fast-Max Congest-Cough 2 tab PO BID 08/17/18 04/12/19 History Prilosec OTC 20 mg PO BID 08/17/18 04/12/19 History Toviaz 4 mg PO QAM 08/17/18 04/12/19 History acetaminophen [Tylenol Extra 500 mg PO Q6H PRN 08/17/18 04/12/19 History Strength] albuterol sulfate 2 puff INHALATION Q6H PRN 08/17/18 04/12/19 History aspirin 81 mg PO QAM 08/17/18 04/12/19 History bumetanide 1 mg PO QAM 08/17/18 04/12/19 History bupropion HCl [Wellbutrin SR] 150 mg PO TID 08/17/18 04/12/19 History cetirizine 10 mg PO QAM 08/17/18 04/12/19 History cholecalciferol (vitamin D3) 800 unit PO QPM 08/17/18 04/12/19 History [Vitamin D3] duloxetine [Cymbalta] 30 mg PO QAM 08/17/18 04/12/19 History duloxetine [Cymbalta] 60 mg PO QAM 08/17/18 04/12/19 History fluticasone propionate [Flonase 1 spray INTRANASAL QAM 08/17/18 04/12/19 History Allergy Relief] multivitamin 1 tab PO QAM 08/17/18 04/12/19 History omega 1-zrk-axe-fish oil [Fish Oil] 1 cap PO BID 08/17/18 04/12/19 History polyethylene glycol 3350 [Miralax] 17 g PO QAM 08/17/18 04/12/19 History ropinirole [Requip] 2 mg PO BID 08/17/18 04/12/19 History ropinirole [Requip] 4 mg PO HS 08/17/18 04/12/19 History silodosin [Rapaflo] 8 mg PO QPM 08/17/18 04/12/19 History simvastatin 80 mg PO PM 08/17/18 04/12/19 History vitamin B complex 1 tab PO QPM 08/17/18 04/12/19 History zolpidem 1 tab PO HS 08/17/18 04/12/19 History baclofen 10 mg PO TID 10/12/18 04/12/19 History fluticasone propionate [Flovent 1 inh INHALATION Q12H 10/12/18 04/12/19 History HFA] guaifenesin [Mucinex] 200 mg PO Q12H 10/12/18 04/12/19 History losartan 25 mg PO HS 10/12/18 04/12/19 History potassium citrate [Urocit-K 15] 1 tab PO ACHS 10/12/18 04/12/19 History rivaroxaban [Xarelto] See Rx Instructions .ROUTE 10/13/18 04/12/19 Rx .COMPLEX #1 ea cefadroxil 500 mg PO BID 04/05/19 04/12/19 History oxycodone 5 mg PO Q4H PRN #12 tab 04/05/19 04/12/19 Rx doxycycline hyclate 100 mg capsule 100 mg PO BID 04/12/19 04/12/19 History Past Med/Surg History Medical History BPH with urinary obstruction (Acute) Hyperlipidemia GERD (gastroesophageal reflux disease) Anxiety Asthma BPH (benign prostatic hyperplasia) Depression Diverticular disease GERD (gastroesophageal reflux disease) Hearing deficit bl hearing aids History of fall Hyperlipidemia Hypertension IBS (irritable bowel syndrome) Kidney stones Osteoarthritis Sleep apnea cpap Transverse myelitis dx 2005 - follows w/ dr. joe - w/ neuropathy to blle, unstable gait r/t poor coordination (tends to walk to left) Surgical History H/O elbow surgery LEFT H/O lithotripsy History of appendectomy History of carpal tunnel release LEFT History of cataract surgery 2mg versed History of colonoscopy History of shoulder surgery x2 to left and x 2 to right r/t injury from fall - left shoulder History of surgery [facility] History of temporal artery biopsy History of total knee replacement left History of uvulopalatopharyngoplasty Hx of tonsillectomy S/P correction of deviated nasal septum Family History Father Myocardial infarction Mother Stroke Social History Preferred Language: Montenegrin Communication Ability: Effective 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 Beliefs That Will Affect Care: None Current Living Situation: Spouse Other Information That Helps Us Care for You: No Feels Safe at Home: Yes Safety Concerns: Feels Safe At This Time Smoking Status: Former smoker Tobacco Type: cigarettes Do You Dip or Chew Tobacco: No Smoking End Date: 1977 Second Hand Exposure: No Tobacco Cessation Education Requested by Patient: No Hx Alcohol Use: No Hx Substance Use: No Review of Systems Review of Systems: Pertinent positives and negatives reviewed in HPI--all others negative Physical Exam Constitutional: WD/WN, vitals as above Eyes: normal visual valdez by confrontation and + anicteric sclerae Neck: normal visual inspection and trachea midline Respiratory: normal respiratory effort, lungs clear to auscultation Cardiovascular: Rate/Rhythm: regular rate and regular rhythm Gastrointestinal (Abdomen): Inspection/Auscultation: abdomen not distended Percussion/Palpation: abdomen soft; abdomen nontender Musculoskeletal: Head/Neck/Chest: normocephalic and head atraumatic no edema on either side of LLE wound dressing, peripheral pulses intact Skin: LLE is with wound dressing from mid foot to knee No redness noted around dressing TTP Neurologic: awake; not confused Speech / Cognition: normal speech Psychiatric: A+Ox3, euthymic affect Code Status & VTE Plan Code Status Full code VTE Prophylaxis Plan VTE Prophylaxis will be ordered: Yes (1) Hematoma of left lower extremity Encounter type: subsequent encounter
[2019-04-12] MEDS ORDERED: ACETAMINOPHEN 500 MG TAB PO PRN (14:20)
[2019-04-12] MEDS ORDERED: OXYCODONE HCL IR 5 MG TAB (IMMEDIATE RELEASE) PO PRN (14:20)
[2019-04-12] MEDS ORDERED: ALBUTEROL HFA 8 GM INHALER INH PRN (14:20)
[2019-04-12] MEDS ORDERED: FLUTICASONE PROP HFA INH 44 MCG INHALER INH SCH (14:30)
[2019-04-12 14:36] LABS: BUN Creatinine Ratio 14.9 (10-20); Calcium 8.9 mg/dl (8.5-10.1); Creatinine Clr Calc Pharmacy 59.3 ml/min; Est GFR (Non-African American) 62.1; Magnesium 2.4 mg/dl (1.8-2.4); Potassium 3.8 mmol/L (3.5-5.1)
[2019-04-12 14:37] LABS: Phosphorus 2.5 mg/dl (2.5-4.9)
--- NOTE | 2019-04-12 15:43 | Ultrasound Report ---
US venous doppler LE LT CLINICAL HISTORY: L LE swelling PAIN. EDEMA. COMPARISON STUDY: 04/05/2019 FINDINGS: Real-time and color flow Doppler imaging were performed. Flow was seen within the femoral, popliteal and calf veins with no intraluminal thrombus demonstrated. The saphenous vein is patent. IMPRESSION: No evidence of deep venous thrombosis. The above report was generated using voice recognition software. It may contain grammatical, syntax or spelling errors. Electronically signed by: Jonas Ahuja M.D. 04/12/2019 3:42 PM
[2019-04-12] MEDS: ROPINIROLE HCL 1 MG TABLET PO SCH ×2 (16:45→21:50)
[2019-04-12] MEDS ORDERED: POTASSIUM CITRATE 10 MEQ TAB PO SCH (21:00)
[2019-04-12] MEDS ORDERED: ROPINIROLE HCL 1 MG TABLET PO SCH ×2 (21:00)
[2019-04-12] MEDS: ZOLPIDEM TARTRATE 10 MG TAB PO SCH (21:47)
[2019-04-12] MEDS: PREGABALIN 100 MG CAP PO SCH (21:47)
[2019-04-12] MEDS: MOMETASONE FUROATE 14 PUFF/1 INHALER INH SCH (21:48)
[2019-04-12] MEDS: BuPROPion SR 150 MG TABCR PO SCH (21:49)
[2019-04-12] MEDS: guaiFENesin 200 MG TAB PO SCH (21:49)
[2019-04-12] MEDS: PANTOprazole 40 MG TAB PO SCH (21:50)
[2019-04-12] MEDS: VITAMIN B COMPLEX TAB PO SCH (21:50)
[2019-04-12] MEDS: BACLOFEN 10 MG TAB PO SCH (21:52)
[2019-04-12] MEDS: LOSARTAN POTASSIUM 25 MG TAB PO SCH (21:52)
[2019-04-12] MEDS: POTASSIUM CITRATE 10 MEQ TAB PO SCH (21:53)
[2019-04-12] MEDS: CHOLECALCIFEROL (VITAMIN D) 400 UNITS TABLET PO SCH (21:54)
[2019-04-13] MEDS ORDERED: VANCOMYCIN CONSULT ACTIVE PRN (07:52)
[2019-04-13] MEDS ORDERED: VANCOMYCIN HCL 1,000 MG in SODIUM CHLORIDE 0.9% 250 ML IV SCH (08:00)
[2019-04-13] MEDS ORDERED: VANCOMYCIN HCL 1,750 MG in SODIUM CHLORIDE 0.9% 500 ML IV SCH (09:00)
[2019-04-13] MEDS ORDERED: DULOXETINE HCL 30 MG CAP PO SCH (09:00)
[2019-04-13] MEDS ORDERED: DULOXETINE HCL 60 MG CAP PO SCH (09:00)
[2019-04-13] MEDS: PANTOprazole 40 MG TAB PO SCH ×2 (09:32→22:13)
[2019-04-13] MEDS: BuPROPion SR 150 MG TABCR PO SCH (09:32)
[2019-04-13] MEDS: ROPINIROLE HCL 1 MG TABLET PO SCH ×3 (09:32→22:14)
[2019-04-13] MEDS: BACLOFEN 10 MG TAB PO SCH ×3 (09:32→22:15)
[2019-04-13] MEDS: DULOXETINE HCL 30 MG CAP PO SCH (09:33)
[2019-04-13] MEDS: CETIRIZINE HCL 10 MG TABLET PO SCH (09:33)
[2019-04-13] MEDS: guaiFENesin 200 MG TAB PO SCH ×2 (09:33→22:17)
[2019-04-13] MEDS: BUMETANIDE 1 MG TAB PO SCH (09:33)
[2019-04-13] MEDS: MOMETASONE FUROATE 14 PUFF/1 INHALER INH SCH ×2 (09:35→22:18)
[2019-04-13] MEDS: FLUTICASONE PROPIONATE NA SPR 16 GM BTL NAE SCH ×2 (09:35→22:19)
[2019-04-13] MEDS: POLYETHYLENE (MIRALAX) 17 GM PACK PO SCH (09:36)
[2019-04-13] MEDS: MULTIVITAMIN TAB PO SCH (09:37)
[2019-04-13] MEDS: POTASSIUM CITRATE 10 MEQ TAB PO SCH ×2 (09:38→22:13)
[2019-04-13] MEDS: PREGABALIN 100 MG CAP PO SCH (09:57)
[2019-04-13] MEDS: OXYCODONE HCL IR 5 MG TAB (IMMEDIATE RELEASE) PO PRN ×2 (12:23→20:42)
--- NOTE | 2019-04-13 13:52 | Pharmacy Report ---
Pharmacy Abx Initial Consult - Date of Service April 13, 2019 - Pharmacy Dosing Scope Date of Consult: 04/13/19 Consultation requested by: Dr. Min Pharmacy is consulted to initiate vancomycin IV dosing therapy, order appropriate labs and adjust drug dose/frequency. - Subjective The patient is a 74 year old M admitted on 04/12/19 13:22. - Objective Height: 5 ft 7 in Weight: 90.9 kg Vital Signs (Past 12hrs): Vital Signs Temp Pulse Resp BP Pulse Ox 04/13/19 07:35 36.7 C 67 20 125/74 95 Lab Results (24hrs): Laboratory Tests (24 Hours) 04/12/19 04/12/19 14:04 14:04 WBC 6.04 Neut # (Auto) 4.09 Creatinine 1.14 Est Cr Clr Drug Dosing 59.3 Micro Results: 04/12/19 14:07 Aerobic Blood Culture - Pending Blood Anaerobic Blood Culture - Pending 04/12/19 14:04 Aerobic Blood Culture - Pending Blood Anaerobic Blood Culture - Pending - Risk Factors for Resistance * Patient failed 9 day treatment with PO doxycycline - Assessment & Plan Assessment 74 year old M receiving empiric vancomycin IV for treatment of LLE cellulitis after having failed treatment with doxycycline PO x 9 days Plan Vancomycin IV * Estimated PK Parameters: Vd 0.6 L/kg, Keith 0.054 hr-1, t1/2 12.8 hr * Loading dose: 1750 mg (19 mg/kg) * Maintenance dose: 1250 mg IV (14 mg/kg) every 16 hours * Goal trough level for cellulitis : 10 to 15 mcg/mL (will follow to assess for deeper involvement) * Trough level ordered for 04/15/19 @0930 prior to 4th dose Will follow cultures (blood x 2 - currently pending) OR altered pharmacokinetics in the setting of /ascites/significant kaiser/cystic fibrosis. * Dose: [] mg ([] mg/kg) IV every [] hours * Dosage based on adjusted body weight for patients weighing > 120% of ideal body weight. * Goal trough level for [indication] : [] to [] mcg/mL * Goal peak level for [indication] : [] to [] mcg/mL * Peak and trough level ordered for []/[]/[] around the [] dose. Pharmacy will continue to follow and will adjust dose/frequency as necessary. Thank you.
[2019-04-13] MEDS ORDERED: PROPYLENE GLYCOL OP PRN (13:53)
[2019-04-13] MEDS ORDERED: ALBUTEROL HFA 8 GM INHALER INH PRN (13:53)
[2019-04-13] MEDS ORDERED: ACETAMINOPHEN 500 MG TAB PO PRN (13:53)
--- NOTE | 2019-04-13 13:58 | Hospitalist Progress Note ---
Date of Service April 13, 2019 Assessment & Plan (1) Cellulitis of left lower extremity: Secondary to traumatic hematoma-failed outpatient therapy with cefadroxil x5 days and then doxy x5 days Is afebrile, no evidence of sepsis LLE US 04/05 neg for DVT, repeat Doppler also negative on 04/12 for DVT Was given 1 dose of daptomycin in the ER and admission -Start vancomycin with dosing as per pharmacy to cover for staph and strep -Follow-up culture collected at the time of hematoma evacuation as below Blood cx no growth to date -Continue to observe for improvement-would expect improvement now that hematoma has been evacuated -Could likely switch to oral antibiotics once improving in the next 1 to 3 days especially if wound culture grows an organism -Elevate leg is much as possible to reduce swelling (2) Hematoma of left lower extremity: Status post evacuation at the wound care clinic on 04/12 With overlying cellulitis as above -Continue wound care with iodoform packing, overlying ABD and kerlix changed daily -Pain control-increase oxycodone/APAP to 2 tablets every 4 hours as needed -He has now completed 6 months of Xarelto for his pulmonary embolism and can permanently discontinue it -Okay to continue baby aspirin daily (3) Pulmonary embolism: Occurred s/p shoulder surgery 09/2018 and was therefore provoked Has completed 6 months of anticoagulation and can discontinue now-he was already stopped from it with his hematoma as of 5 days ago (4) BPH with urinary obstruction: continue home meds of Rapaflo Takes Toviaz for bladder urgency (5) Hyperlipidemia: Okay to restart home simvastatin now that he is no longer on daptomycin (6) GERD (gastroesophageal reflux disease): continue PPI twice daily (7) RLS (restless legs syndrome): continue home Requip (8) HTN (hypertension): Blood pressure controlled -Continue home bumetanide, losartan (9) Transverse myelitis: History of such diagnosed in [address] [facility] Now follows with Dr. Farooq of neurology here -Continue with Cymbalta, Lyrica, Tylenol as needed for pain (10) Depression: Stable -Continue bupropion immediate release 150 mg p.o. 3 times daily (11) Nephrolithiasis: No current obstruction -Takes Urocit-K for prophylaxis (12) Allergic rhinitis: Continue nasal corticosteroid, cetirizine (13) Asthma: No acute exacerbation -Continue albuterol as needed, continue mometasone 1 puff twice daily scheduled (14) Neuropathy: -Stable -Continue Lyrica (15) Insomnia: Stable -Continue Ambien nightly (16) Constipation: Continue MiraLAX daily (17) DVT prophylaxis: SCDs, hold off on chemical anticoagulation given recent hematoma Disposition-remain hospitalized Subjective Patient having a lot of pain in the left leg. Reports that one Percocet is not helping. He denies fevers, sweats, chills. Denies chest pain or shortness of breath. Review of Systems Review of Systems: All systems reviewed & are unremarkable except as noted in HPI & below Physical Exam Constitutional: WD/WN, vitals as above Eyes: PERRL, conjunctivae normal, anicteric sclerae Neck: trachea midline, no thyromegaly Respiratory: normal respiratory effort, lungs clear to auscultation Cardiovascular: RRR, no murmur, no edema Gastrointestinal (Abdomen): normal bowel sounds, soft, nontender, no hepatosplenomegaly Musculoskeletal: Extremities: + extremities abnormal to inspection (left leg with 1+ pitting edema, distal anterior tibia with 2 cm opening with packing now removed, no active bleeding), no cyanosis and no clubbing Skin: + erythema (Left anterior tibia and medial mid tibia with erythema and warmth-apparently improved from yesterday as per patient and his ) Neurologic: moves all extremities and awake; no focal motor deficits Psychiatric: A+Ox3, euthymic affect Results & Data Vital Signs (Past 12 Hours) Vital Signs Temp Pulse Resp BP Pulse Ox 04/13/19 07:35 36.7 C 67 20 125/74 95 Laboratory Results Gram stain of left leg wound with WBCs, no organisms, culture pending Diagnostic Findings Left lower extremity Doppler negative for DVT (1) Hematoma of left lower extremity Encounter type: subsequent encounter
[2019-04-13] MEDS: buPROPion HCl 75 MG TABLET PO SCH ×2 (16:24→22:15)
[2019-04-13] MEDS: TOVIAZ 4 MG PO SCH (16:30)
[2019-04-13] MEDS ORDERED: SILODOSIN 8 MG PO SCH (21:00)
[2019-04-13] MEDS ORDERED: FLUNISOLIDE INTNAS SCH (21:00)
[2019-04-13] MEDS ORDERED: ZOLPIDEM TARTRATE 10 MG TAB PO SCH (21:00)
[2019-04-13] MEDS: ZOLPIDEM TARTRATE 10 MG TAB PO SCH (22:11)
[2019-04-13] MEDS: PREGABALIN 150 MG CAP PO SCH (22:11)
[2019-04-13] MEDS: CHOLECALCIFEROL (VITAMIN D) 400 UNITS TABLET PO SCH (22:12)
[2019-04-13] MEDS: VITAMIN B COMPLEX TAB PO SCH (22:16)
[2019-04-13] MEDS: LOSARTAN POTASSIUM 25 MG TAB PO SCH (22:17)
[2019-04-13] MEDS: SILODOSIN 8 MG PO SCH (22:18)
[2019-04-13] MEDS: SIMVASTATIN 80 MG TAB PO SCH (23:11)
[2019-04-14] MEDS: VANCOMYCIN HCL 1,250 MG in SODIUM CHLORIDE 0.9% 250 ML IV SCH ×2 (01:31→17:55)
[2019-04-14 06:39] LABS: Basophils # (auto) 0.03 K/uL (0-0.2); Basophils % (auto) 0.4 %; Eosinophils % (auto) 4.4 %; Hematocrit (blood only) 39.3 % (42-52); Hemoglobin 13.9 g/dL (14.0-18.0); Immature Granulocytes # (auto) 0.02 K/uL (0.00-0.02); Immature Granulocytes % (auto) 0.3 %; Lymphocytes # (auto) 1.79 K/uL (1.2-3.4); Lymphocytes % (auto) 26.3 %; Mean Corpuscular Hgb Conc 35.4 g/dL (32-36); Mean Corpuscular Volume 87.3 fL (80-100); Mean Platelet Volume 9.8 fL (7.4-10.4); Monocytes # (auto) 0.75 K/uL (0.11-0.59); Neutrophils # (auto) 3.91 K/uL (1.4-6.5); Neutrophils % (auto) 57.6 %; Platelet Count 184 K/uL (130-400); RDW Standard Deviation 44.7 fL (36.4-46.3)
[2019-04-14 07:12] LABS: BUN Creatinine Ratio 15.8 (10-20); Calcium 8.4 mg/dl (8.5-10.1); Creatinine Clr Calc Pharmacy 72.7 ml/min; Est GFR (African American) 92.1; Est GFR (Non-African American) 79.5; Potassium 3.7 mmol/L (3.5-5.1)
[2019-04-14] MEDS: DULOXETINE HCL 30 MG CAP PO SCH (08:54)
[2019-04-14] MEDS: MOMETASONE FUROATE 14 PUFF/1 INHALER INH SCH ×2 (08:54→21:30)
[2019-04-14] MEDS: OXYCODONE HCL IR 5 MG TAB (IMMEDIATE RELEASE) PO PRN (08:55)
[2019-04-14] MEDS: MULTIVITAMIN TAB PO SCH (08:58)
[2019-04-14] MEDS: ROPINIROLE HCL 1 MG TABLET PO SCH ×3 (08:58→21:31)
[2019-04-14] MEDS: buPROPion HCl 75 MG TABLET PO SCH ×3 (08:58→21:33)
[2019-04-14] MEDS: POTASSIUM CITRATE 10 MEQ TAB PO SCH ×2 (08:59→21:31)
[2019-04-14] MEDS: BACLOFEN 10 MG TAB PO SCH ×3 (08:59→21:31)
[2019-04-14] MEDS: PANTOprazole 40 MG TAB PO SCH ×2 (09:00→21:31)
[2019-04-14] MEDS: CETIRIZINE HCL 10 MG TABLET PO SCH (09:00)
[2019-04-14] MEDS ORDERED: FESOTERODINE 4 MG PO SCH (09:00)
[2019-04-14] MEDS: guaiFENesin 200 MG TAB PO SCH ×2 (09:00→19:28)
[2019-04-14] MEDS: TOVIAZ 4 MG PO SCH (09:01)
[2019-04-14] MEDS: POLYETHYLENE (MIRALAX) 17 GM PACK PO SCH (09:02)
[2019-04-14] MEDS: FLUTICASONE PROPIONATE NA SPR 16 GM BTL NAE SCH (09:04)
[2019-04-14] MEDS: PREGABALIN 150 MG CAP PO SCH ×2 (09:17→21:32)
[2019-04-14] MEDS: ASPIRIN 81 MG ECTAB PO SCH (10:50)
[2019-04-14] MEDS: BUMETANIDE 1 MG TAB PO SCH (10:50)
[2019-04-14] MEDS: SILODOSIN 8 MG PO SCH (17:48)
--- NOTE | 2019-04-14 18:58 | Hospitalist Progress Note ---
Date of Service April 14, 2019 Assessment & Plan (1) Cellulitis of left lower extremity: Secondary to traumatic hematoma-failed outpatient therapy with cefadroxil x5 days and then doxy x5 days Is afebrile, no evidence of sepsis LLE US 04/05 neg for DVT, repeat Doppler also negative on 04/12 for DVT Was given 1 dose of daptomycin in the ER Cellulitis is improving today, still with fairly significant edema of the leg. Would benefit from continued IV antibiotics -Continue vancomycin with dosing as per pharmacy to cover for staph and strep Wound culture collected at the time of hematoma evacuation-no growth Blood cx no growth to date -Continue to observe for improvement-would expect improvement now that hematoma has been evacuated -Could likely switch to oral antibiotics if continues to improve by tomorrow -Elevate leg is much as possible to reduce swelling (2) Hematoma of left lower extremity: Status post evacuation at the wound care clinic on 04/12 With overlying cellulitis as above, now improving -Continue wound care with iodoform packing, overlying ABD and kerlix changed daily -Pain control-with oxycodone/APAP to 2 tablets every 4 hours as needed -He has now completed 6 months of Xarelto for his pulmonary embolism and can permanently discontinue it -Okay to continue baby aspirin daily -Will need wound care at home after discharge and follow-up with wound care center (3) Pulmonary embolism: Occurred s/p shoulder surgery 09/2018 and was therefore provoked Has completed 6 months of anticoagulation and can discontinue now-he was already stopped from it with his hematoma as of 5 days ago (4) BPH with urinary obstruction: continue home meds of Rapaflo Takes Toviaz for bladder urgency (5) Hyperlipidemia: -Continue simvastatin (6) GERD (gastroesophageal reflux disease): continue PPI twice daily (7) RLS (restless legs syndrome): continue home Requip (8) HTN (hypertension): Blood pressure controlled -Continue home bumetanide, losartan (9) Transverse myelitis: History of such diagnosed in 2005 at [facility] Now follows with Dr. Farooq of neurology here -Continue with Cymbalta, Lyrica, Tylenol as needed for pain (10) Depression: Stable -Continue bupropion immediate release 150 mg p.o. 3 times daily (11) Nephrolithiasis: No current obstruction -Takes Urocit-K for prophylaxis (12) Allergic rhinitis: Continue nasal corticosteroid, cetirizine (13) Asthma: No acute exacerbation -Continue albuterol as needed, continue mometasone 1 puff twice daily scheduled (14) Neuropathy: -Stable -Continue Lyrica (15) Insomnia: Stable -Continue Ambien nightly (16) Constipation: Continue MiraLAX daily (17) DVT prophylaxis: SCDs, hold off on chemical anticoagulation given recent hematoma Disposition-remain hospitalized, possible dc to home tomorrow Subjective Patient reports continued swelling in the left leg. He says the pain is improved. He denies chest pain or shortness of breath. He denies nausea or vomiting. He is moving his bowels normally. Review of Systems Review of Systems: All systems reviewed & are unremarkable except as noted in HPI & below Physical Exam Constitutional: WD/WN, vitals as above Eyes: PERRL, conjunctivae normal, anicteric sclerae Neck: trachea midline, no thyromegaly Respiratory: normal respiratory effort, lungs clear to auscultation Cardiovascular: RRR, no murmur, no edema Gastrointestinal (Abdomen): normal bowel sounds, soft, nontender, no hepatosplenomegaly Musculoskeletal: Extremities: + extremities abnormal to inspection (left leg with 1+ pitting edema, distal anterior tibia with 2 cm opening with packing now removed, no active bleeding), no cyanosis and no clubbing Skin: + erythema (Left anterior tibia and medial mid tibia with erythema and warmth improved from previous) Neurologic: moves all extremities and awake; no focal motor deficits Psychiatric: A+Ox3, euthymic affect Results & Data Vital Signs (Past 12 Hours) Vital Signs Temp Pulse Resp BP Pulse Ox 04/14/19 16:49 36.7 C 73 19 130/81 95 04/14/19 08:18 36.7 C 90 20 134/75 91 Laboratory Results 04/14/19 04/14/19 Range/Units 06:12 06:12 WBC 6.80 (4.8-10.8) K/uL RBC 4.50 L (4.7-6.1) M/uL Hgb 13.9 L (14.0-18.0) g/dL Hct 39.3 L (42-52) % MCV 87.3 (80-100) fL MCH 30.9 (25-34) pg MCHC 35.4 (32-36) g/dL RDW Std Deviation 44.7 (36.4-46.3) fL RDW Coeff of Brigido 14.0 (11.5-14.5) % Plt Count 184 (130-400) K/uL MPV 9.8 (7.4-10.4) fL Immature Gran % (Auto) 0.3 % Neut % (Auto) 57.6 % Lymph % (Auto) 26.3 % Merrick % (Auto) 11.0 % Eos % (Auto) 4.4 % Baso % (Auto) 0.4 % Immature Gran # (Auto) 0.02 (0.00-0.02) K/uL Neut # (Auto) 3.91 (1.4-6.5) K/uL Lymph # (Auto) 1.79 (1.2-3.4) K/uL Merrick # (Auto) 0.75 H (0.11-0.59) K/uL Eos # (Auto) 0.30 (0-0.5) K/uL Baso # (Auto) 0.03 (0-0.2) K/uL Sodium 140 (136-145) mmol/L Potassium 3.7 (3.5-5.1) mmol/L Chloride 109 H (98-107) mmol/L Carbon Dioxide 28 (21-32) mmol/L Anion Gap 3.0 (3-11) BUN 15 (7-18) mg/dl Creatinine 0.93 (0.6-1.4) mg/dl Est Cr Clr Drug Dosing 72.7 ml/min Est GFR ( Amer) 92.1 Est GFR (Non-Af Amer) 79.5 BUN/Creatinine Ratio 15.8 (10-20) Glucose 93 (70-99) mg/dl Calcium 8.4 L (8.5-10.1) mg/dl (1) Hematoma of left lower extremity Encounter type: subsequent encounter
[2019-04-14] MEDS: ZOLPIDEM TARTRATE 10 MG TAB PO SCH (21:30)
[2019-04-14] MEDS: SIMVASTATIN 80 MG TAB PO SCH (21:31)
[2019-04-14] MEDS: VITAMIN B COMPLEX TAB PO SCH (21:31)
[2019-04-14] MEDS: CHOLECALCIFEROL (VITAMIN D) 400 UNITS TABLET PO SCH (21:31)
[2019-04-14] MEDS: LOSARTAN POTASSIUM 25 MG TAB PO SCH (21:32)
--- NOTE | 2019-04-15 08:21 | Hospitalist Progress Note ---
Date of Service April 15, 2019 Assessment & Plan (1) Cellulitis of left lower extremity: Secondary to traumatic hematoma-failed outpatient therapy with cefadroxil x5 days and then doxy x5 days no evidence of sepsis LLE US 04/05 neg for DVT, repeat Doppler also negative on 04/12 for DVT Was given 1 dose of daptomycin in the ER Cellulitis is improving continues with fairly significant edema of the leg. -Continue vancomycin with dosing as per pharmacy to cover for staph and strep Wound culture collected at the time of hematoma evacuation-no growth Blood cx no growth to date -Continue to observe for improvement-would expect improvement now that hematoma has been evacuated -Could likely switch to oral antibiotics if continues to improve -Elevate leg is much as possible to reduce swelling (2) Hematoma of left lower extremity: Status post evacuation at the wound care clinic on 04/12 With overlying cellulitis as above, now improving -Continue wound care with iodoform packing, overlying ABD and kerlix changed daily -Pain control-with oxycodone/APAP to 2 tablets every 4 hours as needed -He has now completed 6 months of Xarelto for his pulmonary embolism and can permanently discontinue it -Okay to continue baby aspirin daily -Will need wound care at home after discharge and follow-up with wound care center (3) Pulmonary embolism: Occurred s/p shoulder surgery 09/2018 and was therefore provoked Has completed 6 months of anticoagulation and can discontinue now-he was already stopped from it with his hematoma as of 5 days ago (4) BPH with urinary obstruction: continue home meds of Rapaflo Takes Toviaz for bladder urgency (5) Hyperlipidemia: -Continue simvastatin (6) GERD (gastroesophageal reflux disease): continue PPI twice daily (7) RLS (restless legs syndrome): continue home Requip (8) HTN (hypertension): Blood pressure controlled -Continue home bumetanide, losartan (9) Transverse myelitis: History of such diagnosed in 2005 at [facility] Now follows with Dr. Farooq of neurology here -Continue with Cymbalta, Lyrica, Tylenol as needed for pain (10) Depression: Stable -Continue bupropion immediate release 150 mg p.o. 3 times daily (11) Nephrolithiasis: No current obstruction -Takes Urocit-K for prophylaxis (12) Allergic rhinitis: Continue nasal corticosteroid, cetirizine (13) Asthma: No acute exacerbation -Continue albuterol as needed, continue mometasone 1 puff twice daily scheduled (14) Neuropathy: -Stable -Continue Lyrica (15) Insomnia: Stable -Continue Ambien nightly (16) Constipation: Continue MiraLAX daily (17) DVT prophylaxis: SCDs, hold off on chemical anticoagulation given recent hematoma Disposition-remain hospitalized, possible dc Results & Data Vital Signs (Past 12 Hours) Vital Signs Temp Pulse Resp BP Pulse Ox 04/15/19 07:35 36.7 C 69 19 151/77 H 97 04/15/19 00:37 36.5 C 65 18 144/83 H 95 (1) Hematoma of left lower extremity Encounter type: subsequent encounter
[2019-04-15] MEDS: OXYCODONE HCL IR 5 MG TAB (IMMEDIATE RELEASE) PO PRN (09:29)
[2019-04-15] MEDS ORDERED: VANCOMYCIN TROUGH ONE (09:30)
[2019-04-15] MEDS: MOMETASONE FUROATE 14 PUFF/1 INHALER INH SCH (09:31)
[2019-04-15 09:42] LABS: Creatinine Clr Calc Pharmacy 63.2 ml/min; Est GFR (African American) 77.7; Est GFR (Non-African American) 67.1
[2019-04-15] MEDS: PREGABALIN 150 MG CAP PO SCH (09:45)
[2019-04-15] MEDS: PANTOprazole 40 MG TAB PO SCH (09:45)
[2019-04-15] MEDS: guaiFENesin 200 MG TAB PO SCH (09:45)
[2019-04-15] MEDS: ROPINIROLE HCL 1 MG TABLET PO SCH (09:46)
[2019-04-15] MEDS: POLYETHYLENE (MIRALAX) 17 GM PACK PO SCH (09:46)
[2019-04-15] MEDS: ASPIRIN 81 MG ECTAB PO SCH (09:47)
[2019-04-15] MEDS: BACLOFEN 10 MG TAB PO SCH ×2 (09:47→14:48)
[2019-04-15] MEDS: CETIRIZINE HCL 10 MG TABLET PO SCH (09:47)
[2019-04-15] MEDS: BUMETANIDE 1 MG TAB PO SCH (09:47)
[2019-04-15] MEDS: POTASSIUM CITRATE 10 MEQ TAB PO SCH (09:47)
[2019-04-15] MEDS: MULTIVITAMIN TAB PO SCH (09:48)
[2019-04-15] MEDS: DULOXETINE HCL 30 MG CAP PO SCH (09:48)
[2019-04-15] MEDS: TOVIAZ 4 MG PO SCH (09:49)
[2019-04-15] MEDS: buPROPion HCl 75 MG TABLET PO SCH ×2 (09:49→14:48)
[2019-04-15] MEDS: FLUTICASONE PROPIONATE NA SPR 16 GM BTL NAE SCH (09:55)
[2019-04-15] MEDS: VANCOMYCIN HCL 1,250 MG in SODIUM CHLORIDE 0.9% 250 ML IV SCH (10:14)
--- NOTE | 2019-04-15 10:39 | Pharmacy Report ---
Pharmacy Abx Dose Short Note - Date of Service April 15, 2019 - Assessment & Plan Laboratory Tests 04/12/19 04/14/19 04/15/19 14:04 06:12 09:15 Creatinine 1.14 0.93 1.07 Vancomycin Trough 04/15/19 09:15 Creatinine Vancomycin Trough 8.3 Assessment 74 year old M receiving vancomycin IV for treatment of LLE cellulitis after having failed treatment with doxycycline PO x 9 days Day # 3 of antimicrobial therapy. SCr has improved slightly. Plan Vancomycin * Trough level of 8.3 mcg/mL is subtherapeutic * Change to 1250 mg IV every 12 hours * Goal trough level for cellulitis : ~15 mcg/mL * Trough level ordered for: 04/17/19 Pharmacy will continue to follow and will adjust dose/frequency as necessary. Thank you.
--- NOTE | 2019-04-15 17:07 | Discharge Summary ---
Date of Service April 15, 2019 Admission HPI Per Admitting Provider 74 y/o M who was sent here from [facility] after being seen there earlier today. Pt fell on 03/30 and has been seen in the ED and by PCP several times since then for a hematoma that developed. He had an US on 04/05 that was neg for DVT. He continued to have redness and pain and swelling. There was concern for possible cellulitis and pt has been on doxy x9 days. Due to the development of a hematoma, pt's xarelto has been held x5 days. Despite these interventions, pt has had worsening redness, pain, and swelling. He was sent to [facility] today and evacuated the hematoma. Due to concern over worsening redness de spite abx, pt was felt to have a cellulitis that has failed outpt tx. Pt states that he feels much better s/p hematoma evacuation. Still with redness and swelling, but the pain is much better now. Pt denies fever, SOB, chest pain, abd pain, n/v/c/d. Has been tolerating PO without issue. Pt was on xarelto for a PE that developed s/p L shoulder surgery in September. Plan was for tx until end of April. Principal Diagnosis traumatic lower leg wound, hematoma evacuation and cellulitis failing outpt therapy Discharge Exam Patient appears in no distress heart exam is regular lungs are clear his lower externally wound was undressed and evaluated there was approximately 6 to 10 cm of packing in it. The wound was not erythematous there was slightly indurated not appear to be actively infected there is no purulent drainage or serosanguineous drainage. Pain was in good control Discharge Data Allergies Allergy/AdvReac Type Severity Reaction Status Date / Time melon AdvReac Severe Swelling Verified 04/13/19 10:46 of Lip/Tongue/Throat morphine AdvReac Unknown UNABLE TO Verified 04/12/19 10:38 VOID; CONSTIPATION Consultations 04/12/19 13:44 Consult Case Management - Discharge Planning Routine Ordered Studies 04/12/19 13:47 US venous doppler LE LT Urgent Hospital Course (1) Cellulitis of left lower extremity: Secondary to traumatic hematoma-failed outpatient therapy with cefadroxil x5 days and then doxy x5 days no evidence of sepsis however patient improved after vancomycin. Patient be sent home on [place]ayla nasal lid holding his fluoxetine and bupropion while on the medication LLE US 04/05 neg for DVT, repeat Doppler also negative on 04/12 for DVT Patient will have close follow-up with wound care center to determine the need for antibiotics to continue her cessation Wound culture collected at the time of hematoma evacuation-no growth Blood cx no growth to date (2) Hematoma of left lower extremity: Status post evacuation at the wound care clinic on 04/12 With overlying cellulitis as above, now improving will have close follow-up in the wound care clinic we will continue wound care with iodoform packing, overlying ABD and kerlix changed daily -He has now completed 6 months of Xarelto for his pulmonary embolism and can permanently discontinue it -Okay to continue baby aspirin daily (3) Pulmonary embolism: Occurred s/p shoulder surgery 09/2018 and was therefore provoked Has completed 6 months of anticoagulation and can discontinue now-he was already stopped from it with his hematoma as of 5 days ago (4) BPH with urinary obstruction: continue home meds of Rapaflo Takes Toviaz for bladder urgency (5) Hyperlipidemia: -Continue simvastatin (6) GERD (gastroesophageal reflux disease): continue PPI twice daily (7) RLS (restless legs syndrome): continue home Requip (8) HTN (hypertension): Blood pressure controlled -Continue home bumetanide, losartan (9) Transverse myelitis: History of such diagnosed in 2005 at [facility] Now follows with Dr. Farooq of neurology here -Continue with Lyrica, Tylenol as needed for pain (10) Depression: Stable We will need to hold bupropion immediate release 150 mg p.o. 3 times daily while taking the nasal lid (11) Nephrolithiasis: No current obstruction -Takes Urocit-K for prophylaxis (12) Allergic rhinitis: Continue nasal corticosteroid, cetirizine (13) Asthma: No acute exacerbation -Continue albuterol as needed, continue mometasone 1 puff twice daily scheduled (14) Neuropathy: -Stable -Continue Lyrica (15) Insomnia: Stable -Continue Ambien nightly (16) Constipation: Continue MiraLAX daily Total Time Total Time Spent Total Time Spent (In Minutes): greater than 30 minutes were required to prepare discharge Discharge Plan Discharge Items Patient Disposition: Home - Self-Care Reason For Visit: LEFT LOWER EXTREMITY CELLULITIS Discharge Diagnosis: Lower leg infection and wound drainage with packing Discharge Goals: Decrease discomfort Activity: As commented below Activity Comment: no submersion of affected leg Non-emergency contact: Primary Care Provider and Specialist Call non-emergency contact if: you have any medication questions Follow-up/Referrals: Augusto Valdez MD [Primary Care Provider] - Diet: Regular Addtl Provider Instructions: please follow up with wound clinic, please gently clean surface of wound and replace guaze string daily until told otherwise by wound clinic, keep area clean and dry. If area becomes more painful, reddened warm or has increased drainage please seek a health care providers input. please hold bupropion and duloxetine while on antibiotic prescribed Prescriptions: New linezolid 600 mg tablet 600 mg PO BID Qty: 14 RF: 0 Continued multivitamin Tablet 1 tab PO DAILY RF: 0 cetirizine 10 mg Tablet 10 mg PO DAILY RF: 0 simvastatin 80 mg Tablet 80 mg PO HS RF: 0 aspirin [Aspirin Low Dose] 81 mg Tablet,Delayed Release (Dr/Ec) 81 mg PO DAILY RF: 0 acetaminophen [Acetaminophen Extra Strength] 500 mg Tablet 1,000 mg PO Q6H PRN (Reason: Pain) RF: 0 baclofen 10 mg Tablet 10 mg PO TID RF: 0 flunisolide 25 mcg (0.025 %) [place],Non-Aerosol 1 spray INTRANASAL BID RF: 0 ropinirole 2 mg Tablet 2 mg PO BID RF: 0 ropinirole 2 mg Tablet 4 mg PO HS RF: 0 losartan 25 mg Tablet 25 mg PO HS RF: 0 bupropion HCl 75 mg Tablet 150 mg PO TID RF: 0 omeprazole 20 mg Capsule,Delayed Release(Dr/Ec) 20 mg PO BID RF: 0 bumetanide 1 mg Tablet 1 mg PO DAILY RF: 0 vitamin B complex [B-Complex] Tablet 1 tab PO HS RF: 0 zolpidem 10 mg tablet 10 mg PO HS RF: 0 albuterol sulfate 90 mcg/actuation Hfa Aerosol Inhaler 2 puff INHALATION Q6H PRN (Reason: Shortness Of Breath Or Wheezing) RF: 0 MCT Oil 7.7 kcal/mL Oil 15 ml PO QAM RF: 0 cholecalciferol (vitamin D3) [Vitamin D3] 400 unit Tablet 800 unit PO HS RF: 0 Flovent HFA 110 mcg/actuation Hfa Aerosol Inhaler 1 puff INHALATION BID RF: 0 oxycodone 5 mg tablet 5 mg PO Q4 PRN (Reason: Pain) RF: 0 cinnamon bark [Cinnamon] 500 mg Capsule 500 mg PO DAILY RF: 0 duloxetine 30 mg capsule,delayed release(DR/EC) 30 mg PO QAM RF: 0 duloxetine 60 mg capsule,delayed release(DR/EC) 60 mg PO QAM RF: 0 Lyrica 150 mg capsule 150 mg PO BID RF: 0 silodosin [Rapaflo] 8 mg capsule 8 mg PO HS RF: 0 potassium citrate 15 mEq tablet extended release 15 meq PO BID RF: 0 Systane Balance 0.6 % Drops 1 drp OPHTHALMIC (EYE) QID PRN (Reason: Dry Eyes) RF: 0 turmeric root extract 500 mg Capsule 500 mg PO DAILY RF: 0 melatonin 10 mg Tablet 10 mg PO HS RF: 0 Discontinued doxycycline hyclate 100 mg capsule 100 mg PO BID RF: 0 guaifenesin 200 mg Tablet 400 mg PO BID RF: 0 Toviaz 4 mg tablet extended release 24 hr 4 mg PO QAM RF: 0 Stand-Alone Forms: [facility] Discharge Orders: Discharge Order (Routine); Ordered 04/15/19 Ordered By: Gamal Alvarado Admission Data Admit Date/Time: 04/12/19 13:22 Attending Provider: Gamal Alvarado Admit Provider: Caroline Troncoso Primary Care Provider: Augusto Valdez Other Providers: Deandra Min Service: Medical Other Interventions: Discharge Summary Assessment (RN) Last Done: 04/15/19 13:54 DC Date/Time DO NOT enter until pt leaves facility: 04/15/19 14:40
[2019-04-15] MEDS ORDERED: VANCOMYCIN HCL 1,250 MG in SODIUM CHLORIDE 0.9% 250 ML IV SCH (20:00)
[2019-04-17] MEDS ORDERED: VANCOMYCIN TROUGH ONE (07:30)
== END 2019-04-15 14:40 | disposition home health service (06) | DRG 603 ==
LOC: SUATTDRO 13:22 → 2N 13:22